=== PATIENT | female | born 1955 | race Two or more races ===

== ENCOUNTER 2016-10-11 13:40 | Outpatient (CLI) | payer OTHER ==
--- NOTE | 2016-10-18 13:44 | Mammography Report ---
DIGITAL SCREENING MAMMOGRAM: 10/11/2016 CLINICAL INDICATION: A 61-year-old for screening. COMPARISON: 05/2014 TECHNIQUE: Routine CC and MLO projections were obtained of the breasts as well as bilateral laterall y exaggerated craniocaudal views. FINDINGS: Parenchymal tissue within both breasts is extremely dense, which lowers the sensitivity of mammography; however, there are no dominant masses, suspicious microcalcifications, or secondary sig ns of malignancy. In comparison to the previous studies, there are no significant changes. IMPRESSION: No mammographic evidence of malignancy. PLAN: Screening mammography is recommended annually. BI-RADS category 1 - negative. STANDARD QUALIFYING STATEMENTS 1. This examination was reviewed with the aid of Computed-Aided Detection (CAD). 2. A negative or benign imaging report should not delay biopsy if clinically suspicious findings are present. Consider surgical consultation if warranted. More than 5% of cancers are not identified by i maging. 3. Dense breasts may obscure an underlying neoplasm. JOB #: [id number] EXT JOB #:[id number]
== END 2016-10-11 13:41 | disposition home or self-care (01) ==
LOC: DI.N 13:40
PROVIDERS: ATTEND Nurse Practitioner Gerontology
DX: Z12.31 Encounter for screening mammogram for malignant neoplasm of breast (principal)
CPT/HCPCS: 77067

== ENCOUNTER 2017-04-11 10:40 | Outpatient (CLI) | payer OTHER ==
[2017-04-11 12:44] LABS: BASOPHILS % (AUTO) 0.5 %; EOSINOPHILS # (AUTO) 0.1 10^3/uL (0.0-0.7); EOSINOPHILS % (AUTO) 0.9 %; HGB - HEMOGLOBIN 13.4 g/dL (12.0-16.0); LYMPHOCYTES # (AUTO) 1.7 10^3/uL (1.5-3.5); LYMPHOCYTES % (AUTO) 28.3 %; MEAN CORPUSCULAR HEMOGLOBIN 31.2 pg (27.0-31.0); MEAN CORPUSCULAR HGB CONC 33.9 g/dL (32.0-36.0); MEAN CORPUSCULAR VOLUME 92.2 fL (81.0-99.0); MEAN PLATELET VOLUME 9.4 fL (7.9-10.8); MONOCYTES # (AUTO) 0.5 10^3/uL (0.0-1.0); NEUTROPHILS # (AUTO) 3.7 10^3/uL (1.5-6.6); NEUTROPHILS % (AUTO) 62.3 %; PLT - PLATELET COUNT 217 10^3/uL (130-450); RED BLOOD COUNT 4.27 10^6/uL (4.20-5.40); RED CELL DISTRIBUTION WIDTH 14.2 % (12.0-15.0)
[2017-04-11 12:58] LABS: CHOL/HDL RATIO 3.1 (<4.4); CHOLESTEROL 251 mg/dL; GLUCOSE 114 mg/dL (70-100); HDL CHOLESTEROL 81 mg/dL; LDL CHOLESTEROL,CALCULATED 130 mg/dL; LDL/HDL RATIO 1.6 (<4.4); VLDL CHOLESTEROL 40 mg/dL
== END 2017-04-11 10:41 | disposition home or self-care (01) ==
LOC: LAB.N 10:40
PROVIDERS: ATTEND Registered Nurse
DX: Z01.419 Encounter for gynecological examination (general) (routine) without abnormal findings (principal)
CPT/HCPCS: 36415; 80061; 82947; 83721; 84443; 85025

== ENCOUNTER 2017-04-29 08:34 | Outpatient (CLI) | payer OTHER ==
[2017-04-29 13:22] LABS: CHOL/HDL RATIO 3.1 (<4.4); CHOLESTEROL 232 mg/dL; HDL CHOLESTEROL 75 mg/dL; LDL CHOLESTEROL,CALCULATED 139 mg/dL; LDL/HDL RATIO 1.9 (<4.4); VLDL CHOLESTEROL 18 mg/dL
== END 2017-04-29 08:35 | disposition home or self-care (01) ==
LOC: LAB.N 08:34
PROVIDERS: ATTEND Registered Nurse
DX: Z01.419 Encounter for gynecological examination (general) (routine) without abnormal findings (principal)
CPT/HCPCS: 36415; 80061; 82950; 83721

== ENCOUNTER 2017-05-02 08:34 | Outpatient (CLI) | payer OTHER | END 2017-05-02 08:35 | disposition home or self-care (01) | LOC: LAB.N 08:34 | PROVIDERS: ATTEND Registered Nurse | DX: Z01.419 Encounter for gynecological examination (general) (routine) without abnormal findings (principal) | CPT/HCPCS: 36415; 82950 ==

== ENCOUNTER 2018-04-15 08:00 | Outpatient (CLI) | payer OTHER | END 2018-04-15 23:59 | disposition home or self-care (01) | LOC: LAB.R 08:00 | PROVIDERS: ATTEND Nurse Practitioner Gerontology | DX: Z12.11 Encounter for screening for malignant neoplasm of colon (principal) | CPT/HCPCS: 82274 ==

== ENCOUNTER 2018-07-24 08:00 | Outpatient (CLI) | payer OTHER ==
[2018-07-24 14:01] LABS: BASOPHILS % (AUTO) 0.8 %; EOSINOPHILS # (AUTO) 0.1 10^3/uL (0.0-0.7); EOSINOPHILS % (AUTO) 1.6 %; HGB - HEMOGLOBIN 13.2 g/dL (12.0-16.0); LYMPHOCYTES # (AUTO) 1.7 10^3/uL (1.5-3.5); LYMPHOCYTES % (AUTO) 32.6 %; MEAN CORPUSCULAR HGB CONC 33.2 g/dL (32.0-36.0); MEAN CORPUSCULAR VOLUME 93.4 fL (81.0-99.0); MEAN PLATELET VOLUME 10.1 fL (7.9-10.8); MONOCYTES # (AUTO) 0.5 10^3/uL (0.0-1.0); MONOCYTES % (AUTO) 9.4 %; NEUTROPHILS # (AUTO) 2.9 10^3/uL (1.5-6.6); NEUTROPHILS % (AUTO) 55.6 %; PLT - PLATELET COUNT 194 10^3/uL (130-450); RED BLOOD COUNT 4.24 10^6/uL (4.20-5.40); RED CELL DISTRIBUTION WIDTH 13.8 % (12.0-15.0); WHITE BLOOD COUNT 5.2 x10^3/uL (4.8-10.8)
[2018-07-24 14:30] LABS: ALBUMIN 4.1 g/dL (3.2-5.5); ALBUMIN/GLOBULIN RATIO 1.3 (1.0-2.2); BILIRUBIN,TOTAL 0.8 mg/dL (0.2-1.0); CALCIUM 9.7 mg/dL (8.5-10.3); CREATININE 0.9 mg/dL (0.4-1.0); TOTAL PROTEIN 7.2 g/dL (6.7-8.2)
== END 2018-07-24 23:59 | disposition home or self-care (01) ==
LOC: LAB.WCP 08:00
PROVIDERS: ATTEND Family Medicine
DX: K59.00 Constipation, unspecified (principal)
CPT/HCPCS: 36415; 80053; 83540; 84443; 84466; 85025

== ENCOUNTER 2018-09-29 08:36 | Day surgery (SDC) | payer OTHER ==
[2018-09-29] MEDS ORDERED: LACTATED RINGERS 1,000 ML IV ONE ×2 (09:03→13:09)
[2018-09-29] MEDS ORDERED: MIDAZOLAM 2 MG/2 ML VIAL IVP ONE (11:19)
[2018-09-29] MEDS ORDERED: fentaNYL 250 MCG/5 ML VIAL IVP ONE (11:19)
[2018-09-29] MEDS ORDERED: ONDANSETRON 4 MG/2 ML VIAL ONE (13:13)
[2018-09-29 14:03] VITALS: BP 121/70
== END 2018-09-29 08:37 | disposition home or self-care (01) ==
LOC: SDS 08:36
PROVIDERS: ATTEND Internal Medicine Gastroenterology
PROC: 3E0H8GC Introduction of Other Therapeutic Substance into Lower GI, Via Natural or Artificial Opening Endoscopic (ICD-10-PCS; 2018-09-29)
PROC: 0DBK8ZX Excision of Ascending Colon, Via Natural or Artificial Opening Endoscopic, Diagnostic (ICD-10-PCS; principal; 2018-09-29 10:00)
DX: R19.4 Change in bowel habit (principal); D49.0 Neoplasm of unspecified behavior of digestive system; B00.89 Other herpesviral infection
CPT/HCPCS: 45380; 45381; J3010; J7120

== ENCOUNTER 2018-10-09 12:10 | Outpatient (CLI) | payer OTHER ==
[2018-10-09] MEDS ORDERED: IOVERSOL 320 100 ML VIAL IVP ONE ×2 (12:54→14:15)
[2018-10-09] MEDS ORDERED: IOVERSOL 320 50 ML VIAL ONE (12:54)
[2018-10-09 13:48] LABS: BASOPHILS % (AUTO) 0.7 %; EOSINOPHILS % (AUTO) 0.7 %; HGB - HEMOGLOBIN 13.1 g/dL (12.0-16.0); LYMPHOCYTES % (AUTO) 36.5 %; MEAN CORPUSCULAR HEMOGLOBIN 31.2 pg (27.0-31.0); MEAN CORPUSCULAR HGB CONC 32.5 g/dL (32.0-36.0); MEAN PLATELET VOLUME 11.3 fL (7.9-10.8); MONOCYTES # (AUTO) 0.6 10^3/uL (0.0-1.0); MONOCYTES % (AUTO) 10.4 %; NEUTROPHILS # (AUTO) 2.8 10^3/uL (1.5-6.6); NEUTROPHILS % (AUTO) 51.5 %; PLT - PLATELET COUNT 269 10^3/uL (130-450); RED CELL DISTRIBUTION WIDTH 13.8 % (12.0-15.0); WHITE BLOOD COUNT 5.4 x10^3/uL (4.8-10.8)
[2018-10-09 13:53] LABS: ALBUMIN 4.2 g/dL (3.2-5.5); ALBUMIN/GLOBULIN RATIO 1.4 (1.0-2.2); BILIRUBIN,TOTAL 0.6 mg/dL (0.2-1.0); CALCIUM 9.6 mg/dL (8.5-10.3); CREATININE 0.8 mg/dL (0.4-1.0); TOTAL PROTEIN 7.2 g/dL (6.7-8.2)
[2018-10-09] MEDS ORDERED: IOVERSOL 320 50 ML VIAL PO ONE (14:15)
--- NOTE | 2018-10-13 02:28 | CT Report ---
Reason: ADENOCARCINOMA, ASCENDING COLON Procedure Date: 10/09/2018 Accession Number: [id number] / [id number] Procedure: CT - Abdomen/Pelvis W CPT Code: FULL RESULT: EXAM: CT ABDOMEN AND PELVIS EXAM DATE: 10/09/2018 02:09 PM. CLINICAL HISTORY: ADENOCARCINOMA, ASCENDING COLON. COMPARISONS: None. TECHNIQUE: Routine helical CT imaging was performed through the abdomen and pelvis. IV contrast: OPTI 320 80ML. Enteric contrast: Yes. Reconstructions: Coronal and sagittal. In accordance with CT protocol optimization, one or more of the following dose reduction techniques were utilized for this exam: automated exposure control, adjustment of mA and/or KV based on patient size, or use of iterative reconstructive technique. FINDINGS: Lung Bases: Unremarkable. Liver: Normal. No masses. Gallbladder/Bile Ducts: Contracted gallbladder. No gallstones or biliary dilation. Spleen: Normal. Pancreas: Normal. Adrenal Glands: Normal. Kidneys: Subcentimeter hypodensity in left lower pole is too small to characterize although probably punctate cyst. Kidneys otherwise unremarkable. Mild fullness of bilateral renal collecting systems without significant hydronephrosis. Peritoneal Cavity/Bowel: Subtle focal wall thickening/irregularity along ascending colon suspicious for short segment lesion. Colon otherwise unremarkable. No bowel obstruction. No free fluid, free air or adenopathy. The appendix is well visualized and normal. Pelvic Organs: Normal. The bladder and visualized pelvic organs are within normal limits. Vasculature: Scattered atherosclerosis. No aneurysms or other significant abnormality. Bones: Degenerative change at L5-S1. No suspicious osseous lesions. Other: None. IMPRESSION: 1. Subtle focal wall thickening/irregularity along ascending colon likely represents reported ascending colonic neoplasm. Correlate with colonoscopy/biopsy results. 2. No CT findings to suggest metastatic disease in the abdomen or pelvis. 3. Mild fullness of bilateral renal collecting systems without significant hydronephrosis or ureteral calculus. RADIA
--- NOTE | 2018-10-13 02:38 | CT Report ---
Reason: ADENOCARCINOMA, ASCENDING COLON Procedure Date: 10/09/2018 Accession Number: [id number] / [id number] Procedure: CT - CHEST W CPT Code: FULL RESULT: EXAM: CT CHEST EXAM DATE: 10/09/2018 02:09 PM. CLINICAL HISTORY: ADENOCARCINOMA, ASCENDING COLON. COMPARISONS: None. TECHNIQUE: Routine helical CT imaging was performed through the chest. IV contrast: 80 mL Optiray 320. Reconstructions: Coronal and sagittal. In accordance with CT protocol optimization, one or more of the following dose reduction techniques were utilized for this exam: automated exposure control, adjustment of mA and/or KV based on patient size, or use of iterative reconstructive technique. FINDINGS: Lungs/Pleura: Mild biapical scarring, greater on the right than left. Focal mild nodular and tree-in-bud opacities in left lower lobe. Possible punctate nodule in right lower lobe. No additional nodules, bronchial thickening, consolidation, or edema. Pulmonary vasculature is normal. No pleural effusion. No pneumothorax. Mediastinum: Normal. No adenopathy or masses. The heart and great vessels are normal. No pericardial effusion. Vasculature: Mild atherosclerosis at aortic arch. No thoracic aortic aneurysm or dissection. No pulmonary embolism. Bones: Minimal curvature of thoracic spine. No acute fractures. Possible subtle healed right lateral sixth rib fracture. No suspicious osseous lesions. Visualized Abdomen: Unremarkable as visualized. IMPRESSION: 1. No definitive CT findings to suggest metastatic disease in the chest. 2. Focal nodular opacities in left lower lobe suspicious for focal infectious or inflammatory process. Recommend short interval follow-up imaging to reassess/assess for resolution, particularly given history of neoplasm. 3. Biapical scarring. RADIA
== END 2018-10-09 12:11 | disposition home or self-care (01) ==
LOC: DI 12:10
PROVIDERS: ATTEND Internal Medicine Gastroenterology
DX: C18.2 Malignant neoplasm of ascending colon (principal); R91.8 Other nonspecific abnormal finding of lung field
CPT/HCPCS: 71260; 74177; 80053; 85025; Q9967; 36415; 82565

== ENCOUNTER 2018-10-14 08:00 | Outpatient (CLI) | payer OTHER ==
[2018-10-14 13:12] LABS: CREATININE 0.9 mg/dL (0.4-1.0)
== END 2018-10-14 23:59 | disposition home or self-care (01) ==
LOC: LAB.WCP 08:00
PROVIDERS: ATTEND Internal Medicine Gastroenterology
DX: C18.2 Malignant neoplasm of ascending colon (principal)
CPT/HCPCS: 36415; 82565

== ENCOUNTER 2018-10-15 08:00 | Outpatient (CLI) | payer OTHER | END 2018-10-15 23:59 | disposition home or self-care (01) | LOC: LAB.WCP 08:00 | PROVIDERS: ATTEND Internal Medicine Gastroenterology | DX: C18.2 Malignant neoplasm of ascending colon (principal) | CPT/HCPCS: 36415; 82378 ==

== ENCOUNTER 2018-10-19 07:54 | Inpatient (IN) | payer OTHER ==
[2018-10-19] MEDS ORDERED: ACETAMINOPHEN 1,000 MG/100 ML 100 ML IV ONE ×2 (08:10→10:04)
[2018-10-19] MEDS ORDERED: CELECOXIB 100 MG CAPSULE PO ONE (08:12)
[2018-10-19] MEDS ORDERED: GABAPENTIN 400 MG CAPSULE ONE (08:12)
[2018-10-19] MEDS ORDERED: CEFAZOLIN SODIUM IN 0.9 % NACL 2 GM/100 ML BAG IV ONE (08:12)
[2018-10-19] MEDS ORDERED: metroNIDAZOLE 500 MG/100 ML 500 MG/100 ML BAG ONE (08:12)
[2018-10-19] MEDS ORDERED: LACTATED RINGERS 1,000 ML IV ONE ×3 (08:17→12:38)
--- NOTE | 2018-10-19 09:13 | ANESTHESIA ---
Pre-Anesthesia VS, & Labs - Diagnosis Colon CA - Procedure Lap hand assisted R colectomy w/gelport Vital Signs: Temp Pulse Resp BP Pulse Ox 36.9 C 75 16 129/98 H 100 10/19/18 08:17 10/19/18 08:17 10/19/18 08:17 10/19/18 08:17 10/19/18 08:17 Height 5 ft 4 in Weight (kg) 45.5 kg - NPO >8 hours - Is Patient ?: No - Lab Results Lab results reviewed: Yes Home Medications and Allergies Home Medications: Ambulatory Orders No Known Home Medications 10/09/18 No Known Home Medications 10/09/18 Allergies/Adverse Reactions: Allergies Allergy/AdvReac Type Severity Reaction Status Date / Time Sulfa (Sulfonamide AdvReac Nausea, Verified 09/29/18 09:01 Antibiotics) diarrhea Anes History & Medical History - Anesthetic History Anesthesia Complications: reports: No previous complications Family history of Anesthesia Complications: Denies Family history of Malignant Hyperthermia: Denies - Medical History Cardiovascular: reports: None Pulmonary: reports: None Gastrointestinal: reports: None Urinary: reports: None Musculoskeletal: reports: None Endocrine/Autoimmune: reports: None, Other (colon CA) Skin: reports: None - Surgical History General: Colonoscopy Exam General: Alert, Oriented x3, Cooperative Dental: Partials Upper, Partials Lower Mouth Openin Fingerbreadth Neck Mobility: Normal Mallampati classification: II Thyromental Distance: 4-6 cm Respiratory: Lungs clear, Normal breath sounds, No respiratory distress Cardiovascular: Regular rate Neurological: Normal speech Mental/Cognitive Status: Alert/Oriented X3, Normal for patient Cognitive Status: Within normal limits Plan Anesthesia Type: General, Transverse Abdominis Plane (TAP) Block (bilat) Consent for Procedure(s) Verified and Reviewed: Yes Code Status: Attempt Resuscitation ASA classification: 3-Severe systemic disease Is this case an emergency?: No
[2018-10-19] MEDS ORDERED: PROPOFOL 200 MG/20 ML VIAL IVP ONE (10:04)
[2018-10-19] MEDS ORDERED: KETOROLAC 30 MG/ML VIAL IVP ONE (10:04)
[2018-10-19] MEDS ORDERED: MIDAZOLAM 2 MG/2 ML VIAL IVP ONE (10:04)
[2018-10-19] MEDS ORDERED: LIDOCAINE-MPF 2% 5 ML VIAL IM ONE (10:04)
[2018-10-19] MEDS ORDERED: fentaNYL 250 MCG/5 ML VIAL IVP ONE (10:04)
[2018-10-19] MEDS ORDERED: DEXAMETHASONE 4 MG/ML VIAL IVP ONE (10:04)
[2018-10-19] MEDS ORDERED: GLYCOPYRROLATE 1 MG/5 ML VIAL IVP ONE (10:04)
[2018-10-19] MEDS ORDERED: ROCURONIUM 50 MG/5 ML VIAL IVP ONE (10:04)
[2018-10-19] MEDS ORDERED: ONDANSETRON 4 MG/2 ML VIAL IVP ONE (10:04)
[2018-10-19] MEDS: BUPIVACAINE 0.5%-EPI 1:200000 PF 10 ML VIAL ONE ×2 (10:54→11:56)
[2018-10-19] MEDS ORDERED: oxyCODONE 5 MG TABLET PO PRN (12:13)
[2018-10-19] MEDS ORDERED: ONDANSETRON 4 MG/2 ML VIAL IVP PRN (12:13)
--- NOTE | 2018-10-19 12:27 | OPERATIVE REPORT ---
Operative Report - General Admit Date: 10/19/18 Procedure Date: 10/19/18 Planned Procedure: Hand Assisted Laparoscopic Right Colectomy Pre-Op Diagnosis: Ascending colon cancer Procedure Performed: Hand Assisted Laparoscopic Right Colectomy Post Op Diagnosis: Same - Procedure Note Primary Surgeon: Eze Smith MD [facility] Anesthesia Provider: Maik Hernandez CRNA Anesthesia Technique: General ET tube, Regional block (TAP blocks) Pathology: right colon IV Fluids (mL): 1,400 Estimated Blood Loss (mL): 20 Urine Output (mL): 250 Indications: recent colonoscopy showing an ascending colon tumor bx highly suspicious for invasive adenocarcinoma. Findings: no gross evidence of invasion through the wall of the colon, lymphadenopathy, or liver metastases. Complications: none
[2018-10-19] MEDS: ACETAMINOPHEN 1,000 MG/100 ML 100 ML IV SCH ×2 (14:11→20:02)
[2018-10-19] MEDS: LACTATED RINGERS 1,000 ML IV SCH (14:12)
[2018-10-19] MEDS: KETOROLAC 15 MG/ML VIAL IVP SCH (17:13)
[2018-10-19] MEDS: SODIUM CHLORIDE FLUSH 0.9% 10 ML SYRINGE IVP PRN ×2 (17:13→20:57)
[2018-10-19] MEDS: SODIUM CHLORIDE FLUSH 0.9% 10 ML SYRINGE IVP SCH (17:13)
--- NOTE | 2018-10-19 19:01 | PROCEDURE REPORT ---
DATE OF SERVICE: 10/19/2018 Physician: Eze Smith MD PREOPERATIVE DIAGNOSIS: Ascending colon cancer. POSTOPERATIVE DIAGNOSIS: Ascending colon cancer. PROCEDURE PERFORMED: Hand-assisted laparoscopic right colectomy. ANESTHESIA: General endotracheal plus regional block by Maik Hernandez CRNA and DIMITRIOS Pratt. SURGEON: Eze Smith MD. ESTIMATED BLOOD LOSS: 20 mL. COMPLICATIONS: None. DRAINS: None. FINDINGS: Laparoscopy revealed no gross evidence of transmural invasion of the tumor in the distal a scending colon. There was no evidence of mesenteric lymphadenopathy, liver metastasis, ascites, crow toneal or omental implants. The visualized portions of the liver, stomach, gallbladder, and remainde r of small and large bowel appeared within normal limits. INDICATIONS: Patient is a 63-year-old woman who recently underwent a colonoscopy to evaluate change in bowel habits with the findings of an ulcerated partially circumferential tumor in the mid ascendin g colon, biopsies of which showed severe dysplasia concerning for invasive adenocarcinoma. Metastati c workup including CT of chest, abdomen and pelvis were negative. CEA was normal. She was advised t o undergo a hand-assisted laparoscopic right colectomy for definitive surgical treatment. TECHNIQUE: After informed consent and preop ERAS protocol institution, including mechanical and anti biotic bowel preparation, carbohydrate loading, and preoperative education consultation, patient was taken to the operating room where she was placed under general endotracheal anesthesia. TAP blocks w ere performed by Louis Mazariegos CRNA. Orogastric and Pardo catheters were inserted. Her abdomen was prepared with ChloraPrep solution and draped in the usual sterile fashion. Preoperative preparation also included administration of 2 grams cefazolin and 500 mg of metronidazole intravenously within a n hour of the incision. A vertical periumbilical incision approximately 6 cm in length was made, carried down through the lay ers of abdominal wall until the peritoneum was identified and entered sharply. Hemostasis achieved w ith electrocautery. A GelPort was inserted. Pneumoperitoneum was achieved with carbon dioxide. Two additional 5 mm ports were placed in the subxiphoid midline and left upper quadrant. A 5-mm 30-degr ee sevenload telescope was inserted. Using the hand-assisted technique with a GelPort placed in the mi dline incision and the LigaSure, the right colon was exposed and mobilized. Symone ink tattooing was noted in the region of the hepatic flexure. The right colon was mobilized to the level of the midline with care being taken to avoid injury to th e underlying organs such as kidney, gallbladder, duodenum, pancreas and ureter. After sufficient mob ilization had been performed, pneumoperitoneum was allowed to escape. The GelPort was removed and th e right colon was exteriorized where an extracorporeal resection anastomosis was then performed. Poi nts of bowel division were chosen in the right transverse colon several centimeters distal to the [place] ink tattoo site and proximally in the terminal ileum a couple of centimeters from the ileocecal va lve. The bowel was mobilized and divided with the JOSE-75 mm stapler at both sites. The mesentery wa s resected at its base using the LigaSure device and 0 Vicryl ties for hemostasis and for ligation of the ileocolic vessels. The right colon was then sent to pathology. Next, a [id number] functional end-to-end anastomosis was then constructed between the terminal ileum and the transverse colon, latisha ing up the divided ends of the two organs, securing them in place along the antimesenteric border wit h interrupted 3-0 silk sutures, making openings in the terminal ileum and the right colon near the di vided end and using the JOSE-[address] one arm in each organ, closing and firing the stap ler, creating a common channel. After hemostasis was assured, another firing of the JOSE stapler was used to resect the two prior staple lines and the common defect. After hemostasis was assured, patency assured, and viability assured, the anastomosis was returned to the abdominal cavity. Instruments and gloves were changed. Closing tray was used. Pneumoperitoneu m was reestablished. Hemostasis was assured. The abdominal cavity was copiously irrigated with sali ne solution, following which instruments and cannulas were removed under direct vision. Pneumoperito neum was allowed to escape. The midline fascia was closed with continuous 0 PDS suture for the midli ne fascia, followed by 3-0 Vicryl for the subcutaneous tissues and 4-0 Monocryl for the skin, followe d by Dermabond. Also 4-0 Monocryl and Dermabond were used for the two 5 mm port sites as well. Then , 30 mL of 0.25% Marcaine with epinephrine was infiltrated into the incisions to assist in postoperat abdoulaye analgesia. Anesthesia was terminated. The patient was transferred to the recovery room in satis factory condition. Sponge and needle counts were correct x2 and no drains were used. cc: CAMILA Avelar TD: 10/19/2018 12:39
[2018-10-19] MEDS: ENOXAPARIN 30 MG/0.3 ML SYRINGE SUBQ SCH (20:56)
[2018-10-19] MEDS: FAMOTIDINE 20 MG TABLET PO SCH (20:57)
[2018-10-20] MEDS: KETOROLAC 15 MG/ML VIAL IVP SCH ×5 (00:09→23:42)
[2018-10-20] MEDS: SODIUM CHLORIDE FLUSH 0.9% 10 ML SYRINGE IVP SCH ×4 (01:08→23:42)
[2018-10-20] MEDS: ACETAMINOPHEN 1,000 MG/100 ML 100 ML IV SCH ×2 (01:58→08:41)
[2018-10-20] MEDS: LACTATED RINGERS 1,000 ML IV SCH (01:59)
[2018-10-20 05:15] LABS: BASOPHILS % (AUTO) 0.1 %; HGB - HEMOGLOBIN 12.4 g/dL (12.0-16.0); LYMPHOCYTES # (AUTO) 1.1 10^3/uL (1.5-3.5); LYMPHOCYTES % (AUTO) 9.8 %; MEAN CORPUSCULAR HEMOGLOBIN 31.4 pg (27.0-31.0); MEAN CORPUSCULAR HGB CONC 33.7 g/dL (32.0-36.0); MEAN CORPUSCULAR VOLUME 93.2 fL (81.0-99.0); MEAN PLATELET VOLUME 10.5 fL (7.9-10.8); MONOCYTES # (AUTO) 1.1 10^3/uL (0.0-1.0); MONOCYTES % (AUTO) 9.4 %; NEUTROPHILS # (AUTO) 9.3 10^3/uL (1.5-6.6); NEUTROPHILS % (AUTO) 80.2 %; PLT - PLATELET COUNT 232 10^3/uL (130-450); RED BLOOD COUNT 3.95 10^6/uL (4.20-5.40); RED CELL DISTRIBUTION WIDTH 13.3 % (12.0-15.0); WHITE BLOOD COUNT 11.6 x10^3/uL (4.8-10.8)
[2018-10-20 05:26] LABS: ALBUMIN 3.6 g/dL (3.2-5.5); ALBUMIN/GLOBULIN RATIO 1.3 (1.0-2.2); BILIRUBIN,TOTAL 0.6 mg/dL (0.2-1.0); CALCIUM 9.3 mg/dL (8.5-10.3); CREATININE 0.8 mg/dL (0.4-1.0); TOTAL PROTEIN 6.3 g/dL (6.7-8.2)
--- NOTE | 2018-10-20 08:09 | PROVIDER PROGRESS NOTE ---
Subjective - General Admit Date: 10/19/18 Procedure Date: 10/19/18 Post Op Days: 1 Procedure Performed: hand assisted laparoscopic right colectomy - Review of Systems Wound/Incisions: positive: Healing well, No drainage General: positive: No symptoms HEENT: positive: No symptoms Pulmonary: positive: No symptoms Cardiovascular: positive: No symptoms Gastrointestinal: positive: Nausea (mild last night; none now), Abdominal pain (minimal; well controlled with scheduled meds). negative: Vomiting, Difficulty swallowing, Flatus (or stool yet) Genitourinary: positive: No symptoms (voiding well) Musculoskeletal: positive: No symptoms Objective - Patient Data Reviewed Vital Signs: Yes Vital Signs: Vital Signs x48h Temp Pulse Resp BP Pulse Ox 10/20/18 04:17 36.9 C 58 L 18 130/65 100 Weight: Weight 10/18/18 10/19/18 10/20/18 23:59 23:59 23:59 Weight (kg) 53 kg Intake & Output: Intake and Output Totals x24h 10/18/18 10/19/18 10/20/18 23:59 23:59 23:59 Intake Total 2150 1350 Output Total 890 1275 Balance 1260 75 minimal po so far; uo good - Lab Results Lab Results: 10/20/18 04:45 10/20/18 04:45 Other Lab Results: Lab Results x24hrs 10/20/18 10/20/18 Range/Units 04:45 04:45 WBC 11.6 H (4.8-10.8) x10^3/uL RBC 3.95 L (4.20-5.40) 10^6/uL Hgb 12.4 (12.0-16.0) g/dL Hct 36.8 L (37.0-47.0) % MCV 93.2 (81.0-99.0) fL MCH 31.4 H (27.0-31.0) pg MCHC 33.7 (32.0-36.0) g/dL RDW 13.3 (12.0-15.0) % Plt Count 232 (130-450) 10^3/uL MPV 10.5 (7.9-10.8) fL Neut # (Auto) 9.3 H (1.5-6.6) 10^3/uL Lymph # (Auto) 1.1 L (1.5-3.5) 10^3/uL Charles # (Auto) 1.1 H (0.0-1.0) 10^3/uL Eos # (Auto) 0.0 (0.0-0.7) 10^3/uL Baso # (Auto) 0.0 (0.0-0.1) 10^3/uL Absolute Nucleated RBC 0.00 x10^3/uL Nucleated RBC % 0.0 /100WBC Sodium 139 (135-145) mmol/L Potassium 4.2 (3.5-5.0) mmol/L Chloride 102 (101-111) mmol/L Carbon Dioxide 27 (21-32) mmol/L Anion Gap 10.0 (6-13) BUN 12 (6-20) mg/dL Creatinine 0.8 (0.4-1.0) mg/dL Estimated GFR (MDRD) 72 L (>89) Glucose 114 H (70-100) mg/dL Calcium 9.3 (8.5-10.3) mg/dL Total Bilirubin 0.6 (0.2-1.0) mg/dL AST 19 (10-42) IU/L ALT 18 (10-60) IU/L Alkaline Phosphatase 39 L (42-121) IU/L Total Protein 6.3 L (6.7-8.2) g/dL Albumin 3.6 (3.2-5.5) g/dL Globulin 2.7 (2.1-4.2) g/dL Albumin/Globulin Ratio 1.3 (1.0-2.2) - Current Medications Current Medications: Current Medications Generic Name Dose Route Start Last Admin Trade Name Wilfredq PRN Reason Stop Dose Admin Enoxaparin Sodium 30 mg 10/19/18 20:00 10/19/18 20:56 Lovenox SUBQ 30 mg DAILY VIDHI Administration Famotidine 20 mg 10/19/18 21:00 10/19/18 20:57 Pepcid PO 20 mg DAILY VIDHI Administration Lactated Ringer's 1,000 mls @ 50 mls/hr 10/19/18 13:00 10/20/18 01:59 Lr IV 50 mls/hr .Q20H VIDHI Administration Acetaminophen 100 mls @ 400 mls/hr 10/19/18 13:00 10/20/18 02:18 Ofirmev IV Infused Q6H VIDHI Infusion Ketorolac Tromethamine 15 mg 10/19/18 18:00 10/20/18 05:46 Toradol Inj (15mg) IVP 10/24/18 17:59 15 mg Q6H VIDHI Administration Ondansetron HCl 4 mg 10/19/18 12:13 10/19/18 20:56 Zofran Inj IVP 4 mg Q6H PRN Administration Nausea / Vomiting Sodium Chloride 10 ml 10/19/18 17:00 10/20/18 01:08 Normal Saline Flush 0.9% IVP Not Given 0100,0900,1700 VIDHI Sodium Chloride 10 ml 10/19/18 12:13 10/19/18 20:57 Normal Saline Flush 0.9% IVP 10 ml PRN PRN Administration NEEDED PER PROVIDER ORDERS - Physical Exam Wound/Incisions: positive: Healing well General Appearance: positive: No acute distress, Alert Eyes Bilateral: positive: Normal inspection ENT: positive: ENT inspection nml, Pharynx nml, No signs of dehydration Neck: positive: No JVD Respiratory: positive: Chest non-tender, No respiratory distress, Breath sounds nml Cardiovascular: positive: Regular rate & rhythm, No murmur, No gallop Abdomen: positive: Nml bowel sounds, Tenderness (minimal expected crow incisional tenderness; incisions healing well) Skin: positive: Color nml, No rash, Warm, Dry. negative: Cyanosis Extremities: positive: Non-tender, No pedal edema. negative: Calf tenderness Neurologic/Psychiatric: positive: Oriented x3 ABX Reporting Has patient been on IV antibiotics over the past 48 hours?: No Impression/Plan - Problem List Problem List: PO Day 1 s/p lap assisted right colectomy; doing well; plan: continue ERAS protocol: advance diet and activity as evelio.
[2018-10-20] MEDS: ENOXAPARIN 30 MG/0.3 ML SYRINGE SUBQ SCH (08:44)
[2018-10-20] MEDS: FAMOTIDINE 20 MG TABLET PO SCH (08:44)
[2018-10-20] MEDS: SODIUM CHLORIDE FLUSH 0.9% 10 ML SYRINGE IVP PRN ×2 (13:11→17:49)
[2018-10-20] MEDS: ACETAMINOPHEN 325 MG TABLET PO SCH ×2 (14:52→20:41)
[2018-10-21] MEDS: ACETAMINOPHEN 325 MG TABLET PO SCH ×2 (02:02→08:38)
[2018-10-21] MEDS: KETOROLAC 15 MG/ML VIAL IVP SCH (05:41)
[2018-10-21] MEDS: SODIUM CHLORIDE FLUSH 0.9% 10 ML SYRINGE IVP PRN (05:42)
[2018-10-21 05:44] LABS: BASOPHILS % (AUTO) 0.3 %; EOSINOPHILS % (AUTO) 0.7 %; HGB - HEMOGLOBIN 11.4 g/dL (12.0-16.0); LYMPHOCYTES # (AUTO) 1.5 10^3/uL (1.5-3.5); LYMPHOCYTES % (AUTO) 25.1 %; MEAN CORPUSCULAR HEMOGLOBIN 31.6 pg (27.0-31.0); MEAN CORPUSCULAR VOLUME 95.6 fL (81.0-99.0); MEAN PLATELET VOLUME 10.7 fL (7.9-10.8); MONOCYTES # (AUTO) 0.5 10^3/uL (0.0-1.0); MONOCYTES % (AUTO) 7.8 %; NEUTROPHILS % (AUTO) 65.9 %; PLT - PLATELET COUNT 205 10^3/uL (130-450); RED BLOOD COUNT 3.61 10^6/uL (4.20-5.40); RED CELL DISTRIBUTION WIDTH 13.5 % (12.0-15.0)
[2018-10-21 05:58] LABS: ALBUMIN 3.5 g/dL (3.2-5.5); ALBUMIN/GLOBULIN RATIO 1.4 (1.0-2.2); BILIRUBIN,TOTAL 0.9 mg/dL (0.2-1.0); CALCIUM 8.7 mg/dL (8.5-10.3); CREATININE 0.8 mg/dL (0.4-1.0)
--- NOTE | 2018-10-21 08:15 | PROVIDER PROGRESS NOTE ---
Subjective - General Admit Date: 10/19/18 Procedure Date: 10/19/18 Post Op Days: 2 Procedure Performed: hand assisted laparoscopic right colectomy - Review of Systems Wound/Incisions: positive: Healing well General: positive: No symptoms HEENT: positive: No symptoms Pulmonary: positive: No symptoms Cardiovascular: positive: No symptoms Gastrointestinal: positive: Abdominal pain (minimal; well controlled with non narcotic oral meds), Flatus (and liquid stools x 2). negative: Vomiting, Difficulty swallowing Genitourinary: positive: No symptoms (voiding well) Musculoskeletal: positive: No symptoms Psychiatric: positive: No symptoms Objective - Patient Data Reviewed Vital Signs: Yes Weight: Weight 10/19/18 10/20/18 10/21/18 23:59 23:59 23:59 Weight (kg) 53 kg Intake & Output: Intake and Output Totals x24h 10/19/18 10/20/18 10/21/18 23:59 23:59 23:59 Intake Total 2150 3400.833 Output Total 890 2375 700 Balance 1260 1025.833 -700 tolerating full liquid diet well and voiding adequate amounts of urine. - Lab Results Lab Results: 10/21/18 05:18 10/21/18 05:18 Other Lab Results: Lab Results x24hrs 10/21/18 10/21/18 Range/Units 05:18 05:18 WBC 6.0 (4.8-10.8) x10^3/uL RBC 3.61 L (4.20-5.40) 10^6/uL Hgb 11.4 L (12.0-16.0) g/dL Hct 34.5 L (37.0-47.0) % MCV 95.6 (81.0-99.0) fL MCH 31.6 H (27.0-31.0) pg MCHC 33.0 (32.0-36.0) g/dL RDW 13.5 (12.0-15.0) % Plt Count 205 (130-450) 10^3/uL MPV 10.7 (7.9-10.8) fL Neut # (Auto) 4.0 (1.5-6.6) 10^3/uL Lymph # (Auto) 1.5 (1.5-3.5) 10^3/uL Gilmer # (Auto) 0.5 (0.0-1.0) 10^3/uL Eos # (Auto) 0.0 (0.0-0.7) 10^3/uL Baso # (Auto) 0.0 (0.0-0.1) 10^3/uL Absolute Nucleated RBC 0.00 x10^3/uL Nucleated RBC % 0.0 /100WBC Sodium 139 (135-145) mmol/L Potassium 3.8 (3.5-5.0) mmol/L Chloride 102 (101-111) mmol/L Carbon Dioxide 30 (21-32) mmol/L Anion Gap 7.0 (6-13) BUN 15 (6-20) mg/dL Creatinine 0.8 (0.4-1.0) mg/dL Estimated GFR (MDRD) 72 L (>89) Glucose 91 (70-100) mg/dL Calcium 8.7 (8.5-10.3) mg/dL Total Bilirubin 0.9 (0.2-1.0) mg/dL AST 20 (10-42) IU/L ALT 16 (10-60) IU/L Alkaline Phosphatase 35 L (42-121) IU/L Total Protein 6.0 L (6.7-8.2) g/dL Albumin 3.5 (3.2-5.5) g/dL Globulin 2.5 (2.1-4.2) g/dL Albumin/Globulin Ratio 1.4 (1.0-2.2) - Current Medications Current Medications: Current Medications Generic Name Dose Route Start Last Admin Trade Name aTra PRN Reason Stop Dose Admin Acetaminophen 650 mg 10/20/18 14:00 10/21/18 02:02 Tylenol PO Not Given Q6H VIDHI Enoxaparin Sodium 30 mg 10/19/18 20:00 10/20/18 08:44 Lovenox SUBQ 30 mg DAILY VIDHI Administration Famotidine 20 mg 10/19/18 21:00 10/20/18 08:44 Pepcid PO 20 mg DAILY VIDHI Administration Ketorolac Tromethamine 15 mg 10/19/18 18:00 10/21/18 05:41 Toradol Inj (15mg) IVP 10/24/18 17:59 15 mg Q6H VIDHI Administration Ondansetron HCl 4 mg 10/19/18 12:13 10/19/18 20:56 Zofran Inj IVP 4 mg Q6H PRN Administration Nausea / Vomiting Sodium Chloride 10 ml 10/19/18 17:00 10/20/18 23:42 Normal Saline Flush 0.9% IVP 10 ml 0100,0900,1700 VIDHI Administration Sodium Chloride 10 ml 10/19/18 12:13 10/21/18 05:42 Normal Saline Flush 0.9% IVP 10 ml PRN PRN Administration NEEDED PER PROVIDER ORDERS - Physical Exam Wound/Incisions: positive: Healing well, No drainage General Appearance: positive: No acute distress, Alert, Other (ambulating in halls without difficulty) Eyes Bilateral: positive: No scleral icterus ENT: positive: ENT inspection nml, Pharynx nml, No signs of dehydration Neck: positive: Nml inspection, No JVD Respiratory: positive: Chest non-tender, No respiratory distress, Breath sounds nml. negative: Wheezes, Rales, Rhonchi Cardiovascular: positive: Regular rate & rhythm, No murmur, No gallop Abdomen: positive: Nml bowel sounds, No distention, Tenderness (minmal incis ional tenderness; incisions) Skin: positive: Color nml, No rash, Warm, Dry. negative: Cyanosis Extremities: positive: Non-tender, No pedal edema. negative: Calf tenderness Neurologic/Psychiatric: positive: Oriented x3 ABX Reporting Has patient been on IV antibiotics over the past 48 hours?: No Impression/Plan - Problem List Problem List: PO Day #2 s/p lap right colectomy for ascending colon cancer, doing well. Plan: home today, usual precations, non narcotic analgesics only; f/u my office in 1-2 weeks; diet as tolerated except no raw vegetables or nuts for 2 weeks. Path is pending as of now and will be reviewed with pt at her f/u visit.
--- NOTE | 2018-10-21 08:25 | Discharge Plan ---
Discharge Plan Problem Reviewed?: Yes Disposition: Home, Self Care Condition: Good Diet: Regular (avoid raw vegetables and nuts for 2 weeks) Activity Restrictions: no lifting more than 10 lbs; no sports x 2 weeks Shower Restrictions: No Driving Restrictions: Yes (as tolerated) Weight Bearing: Full Weight Additional Instructions or Follow Up instructions: Follow up with Dr. Smith in 1-2 weeks; ambulate daily. Use actaminophen 650 mg every 6 hours as needed and/or ibuprofen 400 mg every 6 hours as needed for pain. No Smoking: If you smoke, Please STOP! Call for help. Follow-up with: Law Bailey MD [Primary Care Provider] -
--- NOTE | 2018-10-21 08:29 | DISCHARGE SUMMARY ---
"Discharge Summary Admit Date: 10/19/18 Discharge Date: 10/21/18 Discharging Provider: Dr. Eze Smith Primary Care Provider: Dr. Law Bailey Code Status: Attempt Resuscitation Condition at Discharge: Good Discharge Disposition: 01 Home, Self Care Discharge Facility Name: [facility] - DIAGNOSES Admission Diagnoses: adenocarcinoma of the ascending colon Discharge Diagnoses with Status of Each Condition: adenocarcinoma of the ascending colon; Laparoscopic right colectomy on 10/19/18. Uneventful postoperative course. - HPI History of Present Illness: See Dr. Smith's H & P. - CONSULTS | PROCEDURES Consultations: none Procedures: 10/19/18: hand assisted laparoscopic right colectomy - HOSPITAL COURSE Hospital Course: Uneventful. Pt followed standard [facility] protocols and by the 2nd postop day pt was tolerating a low residue diet well, ambulating, voiding, moving her bowels well, with stable vital signs and her postop pain well controlled with non narcotic analgesics. Pathology is pending at time of discharge. - ALLERGIES Allergies/Adverse Reactions: Allergies Allergy/AdvReac Type Severity Reaction Status Date / Time Sulfa (Sulfonamide AdvReac Nausea, Verified 09/29/18 09:01 Antibiotics) diarrhea - MEDICATIONS Home Medications: Ambulatory Orders Medication Instructions Recorded Confirmed No Known Home Medications 10/09/18 10/09/18 Home Medications Other | Comments: pt will use acetaminophen 650 mg every 6 hours and ibuprofen 400 mg every 6 hours as needed for pain. - PHYSICAL EXAM AT DISCHARGE General Appearance: positive: No acute distress, Alert Eyes Bilateral: positive: Normal inspection, No scleral icterus ENT: positive: ENT inspection nml, Pharynx nml, No signs of dehydration Neck: positive: Nml inspection Respiratory: positive: Chest non-tender, No respiratory distress, Breath sounds nml. negative: Wheezes, Rales, Rhonchi Cardiovascular: positive: Regular rate & rhythm, No murmur, No gallop Abdomen: positive: Nml bowel sounds, Tenderness (minimal incisional; incisions healing well) Skin: positive: Color nml, No rash, Warm, Dry. negative: Cyanosis Extremities: positive: Non-tender, No pedal edema. negative: Calf tenderness Neurologic/Psychiatric: positive: Oriented x3 - LABS Result Diagrams: 10/21/18 05:18 10/21/18 05:18 - FOLLOW UP Follow Up: Dr. Smith in 1-2 weeks - TIME SPENT Time Spent in Discharge (Minutes): 30"
[2018-10-21] MEDS: ENOXAPARIN 30 MG/0.3 ML SYRINGE SUBQ SCH (08:39)
[2018-10-21] MEDS: FAMOTIDINE 20 MG TABLET PO SCH (08:39)
[2018-10-21] MEDS: SODIUM CHLORIDE FLUSH 0.9% 10 ML SYRINGE IVP SCH (08:42)
[2018-10-21 09:06] VITALS: BP 128/77
== END 2018-10-21 10:40 | disposition home or self-care (01) | DRG 330 ==
LOC: MS2 07:54
PROVIDERS: ADMIT Internal Medicine Gastroenterology; ATTEND Internal Medicine Gastroenterology
PROC: 0DTF0ZZ Resection of Right Large Intestine, Open Approach (ICD-10-PCS; principal; 2018-10-19 09:15)
DX: C18.2 Malignant neoplasm of ascending colon (principal); B00.89 Other herpesviral infection; L82.1 Other seborrheic keratosis; Z79.891 Long term (current) use of opiate analgesic
CPT/HCPCS: 36415; 80053; 85025; A9270; J0131; J0690; J1650; J3010; J7120

== ENCOUNTER 2019-04-30 14:36 | Outpatient (CLI) | payer OTHER ==
[2019-04-30 14:53] LABS: BASOPHILS % (AUTO) 0.6 %; EOSINOPHILS # (AUTO) 0.1 10^3/uL (0.0-0.7); EOSINOPHILS % (AUTO) 1.5 %; HGB - HEMOGLOBIN 12.7 g/dL (12.0-16.0); LYMPHOCYTES # (AUTO) 2.1 10^3/uL (1.5-3.5); LYMPHOCYTES % (AUTO) 33.8 %; MEAN CORPUSCULAR HEMOGLOBIN 31.4 pg (27.0-31.0); MEAN CORPUSCULAR HGB CONC 33.2 g/dL (32.0-36.0); MEAN CORPUSCULAR VOLUME 94.3 fL (81.0-99.0); MEAN PLATELET VOLUME 10.4 fL (7.9-10.8); MONOCYTES # (AUTO) 0.6 10^3/uL (0.0-1.0); MONOCYTES % (AUTO) 9.5 %; NEUTROPHILS # (AUTO) 3.4 10^3/uL (1.5-6.6); NEUTROPHILS % (AUTO) 54.4 %; PLT - PLATELET COUNT 224 10^3/uL (130-450); RED BLOOD COUNT 4.05 10^6/uL (4.20-5.40); RED CELL DISTRIBUTION WIDTH 14.3 % (12.0-15.0); WHITE BLOOD COUNT 6.2 x10^3/uL (4.8-10.8)
[2019-04-30 16:38] LABS: ALBUMIN 4.5 g/dL (3.2-5.5); ALBUMIN/GLOBULIN RATIO 1.6 (1.0-2.2); BILIRUBIN,TOTAL 0.8 mg/dL (0.2-1.0); CALCIUM 9.6 mg/dL (8.5-10.3); CREATININE 0.8 mg/dL (0.4-1.0); TOTAL PROTEIN 7.3 g/dL (6.7-8.2)
== END 2019-04-30 14:37 | disposition home or self-care (01) ==
LOC: LAB 14:36
PROVIDERS: ATTEND Surgery
DX: C18.2 Malignant neoplasm of ascending colon (principal)
CPT/HCPCS: 36415; 80053; 85025

== ENCOUNTER 2019-05-14 14:48 | Outpatient (CLI) | payer OTHER ==
--- NOTE | 2019-05-15 01:10 | XRAY Report ---
Reason: ADENOCARCINOMA Procedure Date: 05/14/2019 Accession Number: [id number] / [id number] Procedure: XR - Chest 2 View X-Ray CPT Code: 81543 Final Report FULL RESULT: EXAM: CHEST RADIOGRAPHY EXAM DATE: 05/14/2019 03:10 PM. CLINICAL HISTORY: History of colon adenocarcinoma. Surveillance. COMPARISON: CHEST W10/09/2018 2:02 PM ABDOMEN/PELVIS W10/09/2018 2:02 PM. TECHNIQUE: 2 views. FINDINGS: Lungs/Pleura: No alveolar consolidation or pleural effusion seen. No pneumothorax. Mediastinum: Heart and mediastinal contours are unremarkable. Other: None. IMPRESSION: 1. No acute abnormality seen in the chest. RADIA
== END 2019-05-14 14:49 | disposition home or self-care (01) ==
LOC: DI 14:48
PROVIDERS: ATTEND Surgery
DX: C18.2 Malignant neoplasm of ascending colon (principal)
CPT/HCPCS: 71046

== ENCOUNTER 2019-07-02 14:00 | Outpatient (CLI) | payer OTHER ==
[2019-07-02 14:29] LABS: CREATININE 0.8 mg/dL (0.4-1.0)
[2019-07-02] MEDS ORDERED: IOVERSOL 320 100 ML VIAL IVP ONE ×2 (15:00→15:25)
--- NOTE | 2019-07-03 14:01 | CT Report ---
Reason: MALIGNANT NEOPLASM OF CECUM Procedure Date: 07/02/2019 Accession Number: [id number] / [id number] Procedure: CT - CHEST W CPT Code: Final Report FULL RESULT: EXAM: CT CHEST EXAM DATE: 07/02/2019 03:21 PM. CLINICAL HISTORY: MALIGNANT NEOPLASM OF CECUM. COMPARISONS: CHEST W/ 10/09/2018 2:02 PM. TECHNIQUE: Routine helical CT imaging was performed through the chest. IV contrast: 75 cc of Optiray 320. Reconstructions: Coronal and sagittal. In accordance with CT protocol optimization, one or more of the following dose reduction techniques were utilized for this exam: automated exposure control, adjustment of mA and/or KV based on patient size, or use of iterative reconstructive technique. FINDINGS: Lungs/Pleura: Biapical parenchymal scarring and pleural thickening again seen. No endobronchial obstruction. No pneumothorax. No pleural effusions. No vascular congestion. There is focal bronchiectasis in the posterior mid left lower lobe, as before although slightly more prominent with mucous plugging and centrilobular opacities peripherally, as before. 2 mm nodule medial left lower lobe image 267, series 4, stable. No other or new nodules are identified. Punctate nodule in the right lobe previously described not well delineated on the current study. Right middle lobe and lingular scar/atelectasis. Calcified left lower lobe granuloma again seen. Mediastinum: Visualized thyroid gland unremarkable. Heart size normal. No enlarged mediastinal or hilar lymph nodes. Tiny hiatal hernia. No mediastinal fluid collections. Bones: Degenerative changes thoracic spine, thoracic scoliosis. No acute osseous abnormalities. No osseous lesions. Healed right lateral 5th, 6th, and 7th rib fractures. Visualized Abdomen: Abdominal aortic atherosclerosis, otherwise unremarkable upper abdomen. Other: None. IMPRESSION: 1. Focal bronchiectasis and centrilobular airspace opacities left lower lobe slightly more prominent, likely due to chronic focal airways disease. 2. Biapical parenchymal scarring and pleural thickening. 3. No new parenchymal lesions are identified to suggest metastatic disease. 4. No thoracic adenopathy. RADIA
== END 2019-07-02 14:01 | disposition home or self-care (01) ==
LOC: LAB 14:00
PROVIDERS: ATTEND Internal Medicine
DX: J47.9 Bronchiectasis, uncomplicated (principal); J98.4 Other disorders of lung; C18.0 Malignant neoplasm of cecum
CPT/HCPCS: 36415; 71260; 82565; Q9967

== ENCOUNTER 2019-11-22 07:02 | Day surgery (SDC) | payer OTHER ==
[~2019-11-22 07:02] MED LIST: SODIUM/POTASSIUM/MAG SULFATES 354 ML PREP KIT PO SCH
[2019-11-22] MEDS ORDERED: LACTATED RINGERS 1,000 ML IV ONE ×2 (07:30→09:14)
[2019-11-22] MEDS ORDERED: fentaNYL 250 MCG/5 ML VIAL IVP ONE (08:36)
[2019-11-22] MEDS ORDERED: MIDAZOLAM 2 MG/2 ML VIAL IVP ONE (08:36)
[2019-11-22] MEDS ORDERED: ONDANSETRON 4 MG/2 ML VIAL ONE ×2 (10:05→10:39)
[2019-11-22 11:23] VITALS: BP 130/77
[2019-11-22] MEDS ORDERED: METOCLOPRAMIDE 10 MG/2 ML VIAL ONE (12:06)
== END 2019-11-22 07:03 | disposition home or self-care (01) ==
LOC: SDS 07:02
PROVIDERS: ATTEND Internal Medicine Gastroenterology
DX: C18.2 Malignant neoplasm of ascending colon (principal); Z98.0 Intestinal bypass and anastomosis status
CPT/HCPCS: 45378; A9270; J2765; J3010; J7120

== ENCOUNTER 2020-01-27 14:59 | Outpatient (CLI) | payer OTHER ==
--- NOTE | 2020-01-28 05:38 | Mammography Report ---
BILATERAL DIGITAL SCREENING MAMMOGRAM 3D/2D: 01/27/2020 CLINICAL: Family history of breast cancer. Routine screening. Comparison is made to exams dated: 10/11/2016 mammogram and 05/27/2014 mammogram - [facility]. The tissue of both breasts is extremely dense, which lowers the sensitivity of mammography . There is an asymmetry in the right breast middle depth medial region seen on the craniocaudal view on ly. There is possible architectural distortion associated with the asymmetry. No other significant masses, calcifications, or other findings are seen in either breast. IMPRESSION: INCOMPLETE: NEEDS ADDITIONAL IMAGING EVALUATION The asymmetry in the right breast is indeterminate. Additional views with possible ultrasound are re commended. This exam was interpreted at Station ID: [id number]. NOTE: For mammograms, a report in lay terms will be sent to the patient. Approximately 15% of breast malignancies will not be visualized mammographically. In the management of a palpable breast mass, a negative mammogram must not discourage biopsy of a clinically suspicious lesion. Electronically Signed By: Nellie Graham M.D. lk/:01/27/2020 16:42:44 ACR BI-RADS Category 0: Incomplete 3340F PARENCHYMAL PATTERN: (VD) - The breast(s) demonstrate(s) extremely dense parenchyma, limiting the sen sitivity of mammography. BI-RADS CATEGORY: (0) - 0 Mammo and [place] [id number] Immediate follow-up LATERALITY: (B)
== END 2020-01-27 15:00 | disposition home or self-care (01) ==
LOC: DI.N 14:59
DX: Z12.31 Encounter for screening mammogram for malignant neoplasm of breast (principal); Z80.3 Family history of malignant neoplasm of breast
CPT/HCPCS: 77067

== ENCOUNTER 2020-02-16 16:51 | Outpatient (CLI) | payer MEDICARE, OTHER ==
[2020-02-16] MEDS ORDERED: IOVERSOL 320 50 ML VIAL ONE (17:10)
[2020-02-16] MEDS ORDERED: IOVERSOL 320 100 ML VIAL IVP ONE ×2 (17:10→20:08)
[2020-02-16] MEDS ORDERED: IOVERSOL 320 50 ML VIAL PO ONE (20:08)
--- NOTE | 2020-02-17 08:56 | CT Report ---
PROCEDURE: CHEST W INDICATIONS: MALIGNANT NEOPLASM OF CECUM CONTRAST: IV CONTRAST: Optiray 320 ml: 100 PO CONTRAST: Optiray 320 ml50 TECHNIQUE: After the administration of intravenous contrast, 5 mm thick sections acquired from the pulmonary api gaudencio to the posterior costophrenic angles. 7 mm thick coronal MIP reformats were acquired. For radia tion dose reduction, the following was used: automated exposure control, adjustment of mA and/or kV according to patient size. COMPARISON: CT chest 07/03/2019 FINDINGS: Image quality: Excellent. Lungs and pleura: A 3 x 2 mm nodule is seen in the anterior aspect of the right upper lobe (image 12 6 of series 3) which is grossly stable and nonspecific. A few scattered calcified granulomas are note d in both lungs. Bronchiectasis and tree-in-bud nodularity is again seen within the left lower lobe ( image 188 of series 3), which appear stable when compared to the CT from 07/02/2019. A few additional scattered areas of minimal bronchiectasis are noted in both lungs. Pleural parenchymal scarring is se en in the lung apices bilaterally. No pleural effusions or pneumothorax. Mediastinum: Heart size is normal. No pericardial effusion. No mediastinal or hilar adenopathy by size criteria. Thoracic aorta and central pulmonary arteries are normal in size. Esophagus is marion l in caliber. No hiatal hernia. Bones and chest wall: No suspicious bony lesions. No vertebral body compression fractures. Mild co emmett deformity of the right lateral sixth rib may be secondary to a healed fracture. No axillary or supraclavicular adenopathy by size criteria. Thyroid gland is unremarkable. Abdomen: Visualized upper abdominal solid organs appear normal. Upper abdominal bowel loops are nor mal in caliber. IMPRESSION: 1. No CT evidence of metastatic disease in chest. 2. Left lower lobe bronchiectasis and associated tree-in-bud nodularity does not appear significantl y changed when compared to the CT from 07/02/2019. Findings may be related to prior infection, prior a spiration, or a chronic indolent infection with an atypical agent such as with nontuberculous mycobac teria. Reviewed by: Homer Perdomo MD on 02/17/2020 8:55 AM PST Approved by: Homer Perdomo MD on 02/17/2020 8:55 AM PST Station ID: [id number]
--- NOTE | 2020-02-17 10:42 | CT Report ---
PROCEDURE: Abdomen/Pelvis W INDICATIONS: MALIGNANT NEOPLASM OF CECUM CONTRAST: IV CONTRAST: Optiray 320 ml: 100 PO CONTRAST: Optiray 320 ml50 TECHNIQUE: After the administration of intravenous and oral contrast, 5 mm thick sections acquired from the diap hragms to the symphysis. 5 mm thick coronal and sagittal reformats were acquired. For radiation dos e reduction, the following was used: automated exposure control, adjustment of mA and/or kV accordin g to patient size. COMPARISON: CT abdomen pelvis 09/12/2018, CT chest 02/16/2020. FINDINGS: Image quality: Excellent. ABDOMEN: Lung bases: There is mild bronchiectasis partially visualized within the left lower lobe. A few adjac ent clustered groundglass opacities are also partially visualized. Heart size is normal. Solid organs: Evaluation of the liver demonstrates no focal hepatic lesions. Gallbladder appears wit hin normal limits without calcified gallstones. Biliary system is non dilated. The spleen is normal in size. Pancreas enhances normally without peripancreatic fat stranding or fluid collections. No ad renal nodules. Kidneys demonstrate no hydronephrosis. Peritoneum and bowel: There are postsurgical changes consistent with partial right hemicolectomy. Aldrich el loops demonstrate normal wall thickness and caliber without a discrete mass identified. There is m oderate colonic stool distention distally suggestive of constipation. No free fluid or air. Nodes and vessels: No retroperitoneal or mesenteric adenopathy by size criteria. Aorta and inferior vena cava are normal in size. Miscellaneous: No ventral hernias. PELVIS: Genitourinary: Bladder wall thickness is normal. Miscellaneous: No inguinal hernias or adenopathy. Bones: No suspicious bony lesions. There is multilevel degenerative disc disease including moderate to severe degeneration at L5-S1. There is mild grade 1 anterolisthesis at L4-L5. Findings are similar to the prior study. No vertebral body compression fractures. IMPRESSION: 1. Postsurgical changes demonstrated consistent with prior partial right hemicolectomy. No definite e vidence of new recurrent or metastatic disease. 2. Moderate colonic stool distention distally suggestive of constipation or obstipation. No obstructi ng mass lesion identified. 3. Partially visualized small region of bronchiectasis with small adjacent clustered groundglass nodu les in the left lower lobe. The findings likely represent sequelae of an atypical infection. Reviewed by: Iam Arredondo MD on 02/17/2020 10:40 AM PST Approved by: Iam Arredondo MD on 02/17/2020 10:40 AM PST Station ID: [id number]
== END 2020-02-16 16:52 | disposition home or self-care (01) ==
LOC: DI 16:51
PROVIDERS: ATTEND Internal Medicine
DX: C18.0 Malignant neoplasm of cecum (principal); J47.9 Bronchiectasis, uncomplicated
CPT/HCPCS: 71260; 74177; Q9967

== ENCOUNTER 2020-08-08 08:00 | Outpatient (CLI) | payer OTHER, MEDICARE ==
[2020-08-08 13:05] LABS: CHOL/HDL RATIO 3.1 (<4.4); CHOLESTEROL 235 mg/dL; HDL CHOLESTEROL 76 mg/dL; LDL CHOLESTEROL,CALCULATED 133 mg/dL; LDL/HDL RATIO 1.8 (<4.4); TRIGLYCERIDES 132 mg/dL; VLDL CHOLESTEROL 26 mg/dL
[2020-08-08 13:16] LABS: THYROID STIMULATING HORMONE 3.06 uIU/mL (0.34-5.60)
== END 2020-08-08 23:59 | disposition home or self-care (01) ==
LOC: LAB.WCP 08:00
PROVIDERS: ATTEND Internal Medicine
DX: K59.09 Other constipation (principal); Z13.220 Encounter for screening for lipoid disorders
CPT/HCPCS: 36415; 80061; 83721; 84443

== ENCOUNTER 2020-11-29 14:59 | Outpatient (CLI) | payer MEDICARE, OTHER ==
--- NOTE | 2020-11-29 15:42 | DEXA Report ---
PROCEDURE: Dexa Spine and/or Hip INDICATIONS: POSTMENOPAUSAL TECHNIQUE: Dual energy x-ray absorptiometry (DXA) was performed on a [employer] System. Regions measur ed are the AP Spine, femoral neck, and if needed forearm. COMPARISON: None. FINDINGS: Lumbar Spine: Bone Mineral Density 1.001 g/cm/cm,T score -1.4, osteopenia Left Femoral Neck: Bone Mineral Density 0.661 g/cm/cm, T score -2.7, osteoporosis (T score greater or equal to -1.0: NORMAL) (T score from -1.1 to -2.4: OSTEOPENIA) (T score less than or equal to -2.5 to: OSTEOPOROSIS) Impression: Osteopenic and osteoporotic bone mineral density. Patients with diagnosis of osteoporosis or osteopenia should have regular bone mineral density assess ment. For those eligible for Medicare, routine testing is allowed once every 2 years. Testing frequ ency can be increased for patients who have rapidly progressing disease or for those who are receivin g medical therapy to restore bone mass. Reviewed by: Sulaiman Calderon MD on 11/29/2020 3:40 PM PDT Approved by: Sulaiman Calderon MD on 11/29/2020 3:40 PM PDT Station ID: [id number]
== END 2020-11-29 15:00 | disposition home or self-care (01) ==
LOC: DI 14:59
PROVIDERS: ATTEND Internal Medicine
DX: Z78.0 Asymptomatic menopausal state (principal); M81.0 Age-related osteoporosis without current pathological fracture

== ENCOUNTER 2020-12-11 14:41 | Outpatient (CLI) | payer MEDICARE ==
--- NOTE | 2020-12-14 02:21 | XRAY Report ---
PROCEDURE: Hips 2V BILAT INDICATIONS: BILATERAL HIP PX TECHNIQUE: 2 views of the hip were acquired. Images became available for review on 12/13/2020 COMPARISON: None minimal to mild bilateral degenerative hip joint space narrowing. No erosions. FINDINGS: Bones: No fractures or dislocations. No suspicious bony lesions. The visualized pelvic ring appear s intact. Soft tissues: No suspicious soft tissue calcifications or masses. IMPRESSION: Early changes of bilateral hip osteoarthritis. Reviewed by: Angeli Sanchez MD on 12/14/2020 1:39 AM PDT Approved by: Angeli Sanchez MD on 12/14/2020 1:39 AM PDT Station ID: [id number]
== END 2020-12-11 14:42 | disposition home or self-care (01) ==
LOC: DI.N 14:41
PROVIDERS: ATTEND Internal Medicine
DX: M25.551 Pain in right hip (principal); M25.552 Pain in left hip; M16.0 Bilateral primary osteoarthritis of hip

== ENCOUNTER 2021-04-09 13:21 | Outpatient (CLI) | payer OTHER, MEDICARE ==
--- NOTE | 2021-04-10 11:46 | Mammography Report ---
BILATERAL DIGITAL SCREENING MAMMOGRAM 3D/2D: 04/09/2021 CLINICAL: Routine screening. Comparison is made to exams dated: 02/15/2020 mammogram - [facility], 01/27/2020 mammogram - [facility], 01/27/2020 mammogram - [facility], 10/11/2016 mamm ogram - [facility], 10/11/2016 mammogram - [facility], and 015 mammogram - [facility]. The tissue of both breasts is extremely dense, which l owers the sensitivity of mammography. No significant masses, calcifications, or other findings are seen in either breast. There has been no significant interval change. IMPRESSION: NEGATIVE There is no mammographic evidence of malignancy. A 1 year screening mammogram is recommended. This exam was interpreted at Station ID: [id number]. NOTE: For mammograms, a report in lay terms will be sent to the patient. Approximately 15% of breast malignancies will not be visualized mammographically. In the management of a palpable breast mass, a negative mammogram must not discourage biopsy of a clinically suspicious lesion. Electronically Signed By: Ellie harding/selene:04/09/2021 14:21:41 ACR BI-RADS Category 1: Negative 3341F PARENCHYMAL PATTERN: (VD) - The breast(s) demonstrate(s) extremely dense parenchyma, limiting the sen sitivity of mammography. BI-RADS CATEGORY: (1) - 1 RECOMMENDATION: (ANNUAL) - Recommend routine annual screening mammography. [id number] 1 year screening LATERALITY: (B)
== END 2021-04-09 13:22 | disposition home or self-care (01) ==
LOC: DI.N 13:21
PROVIDERS: ATTEND Internal Medicine
DX: Z12.31 Encounter for screening mammogram for malignant neoplasm of breast (principal)

== ENCOUNTER 2021-05-22 14:44 | Outpatient (CLI) | payer OTHER, MEDICARE ==
[2021-05-22 18:06] LABS: BASOPHILS # (AUTO) 0.1 10^3/uL (0.0-0.1); BASOPHILS % (AUTO) 0.6 %; EOSINOPHILS # (AUTO) 0.1 10^3/uL (0.0-0.7); EOSINOPHILS % (AUTO) 1.5 %; HCT - HEMATOCRIT 39.6 % (37.0-47.0); HGB - HEMOGLOBIN 13.1 g/dL (12.0-16.0); LYMPHOCYTES # (AUTO) 2.2 10^3/uL (1.5-3.5); LYMPHOCYTES % (AUTO) 27.1 %; MEAN CORPUSCULAR HEMOGLOBIN 31.1 pg (27.0-31.0); MEAN CORPUSCULAR HGB CONC 33.1 g/dL (32.0-36.0); MEAN CORPUSCULAR VOLUME 94.1 fL (81.0-99.0); MEAN PLATELET VOLUME 10.5 fL (7.9-10.8); MONOCYTES # (AUTO) 0.5 10^3/uL (0.0-1.0); MONOCYTES % (AUTO) 6.7 %; NEUTROPHILS # (AUTO) 5.1 10^3/uL (1.5-6.6); NEUTROPHILS % (AUTO) 63.7 %; PLT - PLATELET COUNT 358 10^3/uL (130-450); RED BLOOD COUNT 4.21 10^6/uL (4.20-5.40)
[2021-05-22 18:21] LABS: ALBUMIN 4.2 g/dL (3.2-5.5); ALBUMIN/GLOBULIN RATIO 1.3 (1.0-2.2); BILIRUBIN,TOTAL 0.7 mg/dL (0.2-1.0); CALCIUM 9.3 mg/dL (8.5-10.3); CREATININE 0.8 mg/dL (0.4-1.0); TOTAL PROTEIN 7.5 g/dL (6.7-8.2)
== END 2021-05-22 23:59 | disposition home or self-care (01) ==
LOC: LAB.N 14:44
PROVIDERS: ATTEND Nurse Practitioner
DX: R04.0 Epistaxis (principal)
CPT/HCPCS: 36415; 80053; 85025

== ENCOUNTER 2021-12-18 08:57 | Day surgery (SDC) | payer OTHER, MEDICARE ==
[2021-12-18] MEDS ORDERED: LACTATED RINGERS 1,000 ML IV ONE ×2 (09:13→11:42)
--- NOTE | 2021-12-18 11:02 | ANESTHESIA ---
Pre-Anesthesia VS, & Labs - Diagnosis hx of colon CA - Procedure colonoscopy Vital Signs: Temp Pulse Resp BP Pulse Ox O2 Flow Rate 36.5 C 55 L 21 155/79 H 100 12/18/21 09:23 12/18/21 09:23 12/18/21 09:23 12/18/21 09:23 12/18/21 09:23 Height: 5 ft 3 in Weight (kg): 45.9 kg Body Mass Index: 17.9 BMI Classification: Underweight - NPO >8 hours - Is Patient ?: No Home Medications and Allergies Calcium Carb/Mag Ox/Zinc Sulf [Bxe-Ibr-Tnco 334-134-5 mg Tab] 1 each PO DAILY 09/05/21 Allergies/Adverse Reactions: Allergies Allergy/AdvReac Type Severity Reaction Status Date / Time Sulfa (Sulfonamide AdvReac Nausea, Verified 12/17/21 10:28 Antibiotics) diarrhea Anes History & Medical History - Anesthetic History Anesthesia Complications: reports: No previous complications Family history of Anesthesia Complications: Denies Family history of Malignant Hyperthermia: Denies - Medical History Cardiovascular: reports: None Pulmonary: reports: None Gastrointestinal: reports: None Urinary: reports: None Neuro: reports: None Musculoskeletal: reports: None Endocrine/Autoimmune: reports: None, Other Blood Disorders: reports: None Skin: reports: None Smoking Status: Never smoker - Surgical History General: reports: Bowel surgery, Colonoscopy Exam General: Alert, Oriented x3, Cooperative Dental: WNL Mouth Openin Fingerbreadth Neck Mobility: Normal Mallampati classification: I Respiratory: Lungs clear Cardiovascular: Regular rate Plan Anesthesia Type: Total IV Consent for Procedure(s) Verified and Reviewed: Yes Code Status: Attempt Resuscitation ASA classification: 2-Mild systemic disease Is this case an emergency?: No
[2021-12-18] MEDS ORDERED: PROPOFOL 500 MG/50 ML 500 MG/50 ML VIAL ONE (11:04)
[2021-12-18] MEDS ORDERED: GLYCOPYRROLATE 1 MG/5 ML VIAL ONE (11:24)
[2021-12-18 12:15] VITALS: BP 104/57
--- NOTE | 2021-12-18 15:06 | ANESTHESIA POST OP EVALUATION ---
Anesthesia Post Eval - Post Anesthesia Eval Vitals: Last Vital Signs Temp 36.5 C 12/18/21 11:42 Pulse 56 L 12/18/21 12:14 Resp 18 12/18/21 12:14 BP 104/57 L 12/18/21 12:14 Pulse Ox 100 12/18/21 12:14 O2 Flow Rate CV Function Including HR & BP: Stable Pain Control: Satisfactory Nausea & Vomiting: Negative Mental Status: Baseline Respiratory Status: Airway Patent Hydration Status: Satisfactory Anesthesia Complications: None
== END 2021-12-18 08:58 | disposition home or self-care (01) ==
LOC: SDS 08:57
PROVIDERS: ATTEND Surgery
DX: Z08 Encounter for follow-up examination after completed treatment for malignant neoplasm (principal); J47.9 Bronchiectasis, uncomplicated; R63.6 Underweight; Z68.1 Body mass index [BMI] 19.9 or less, adult; Z90.49 Acquired absence of other specified parts of digestive tract; Z85.038 Personal history of other malignant neoplasm of large intestine; Z98.0 Intestinal bypass and anastomosis status
CPT/HCPCS: 45378; J7120

== ENCOUNTER 2022-04-18 14:28 | Outpatient (CLI) | payer OTHER, MEDICARE ==
--- NOTE | 2022-04-19 12:05 | Mammography Report ---
BILATERAL DIGITAL SCREENING MAMMOGRAM 3D/2D: 04/18/2022 CLINICAL: Routine screening. Comparison is made to exams dated: 04/09/2021 mammogram - [facility], 02/15/2020 mamm ogram - [facility], 01/27/2020 mammogram - [facility], 01/27/2020 mammo gram - [facility], 10/11/2016 mammogram - [facility], and 7 mammogram - [facility]. Both breasts are extremely dense, which lowers the sensitivity of mammography (category d />75% gland ular tissue). No significant masses, calcifications, or other findings are seen in either breast. There has been no significant interval change. IMPRESSION: NEGATIVE There is no mammographic evidence of malignancy. A 1 year screening mammogram is recommended. Based on the Tyrer Cuzick model (a risk assessment model) the patients lifetime risk is 12.0% and he r 10 year risk is 6.4%. According to the ACR, ACS, and NCCN guidelines, an annual breast MRI exam zully ng with mammogram is recommended if the patients lifetime risk is 20% or greater. This exam was interpreted at Station ID: [id number]. NOTE: For mammograms, a report in lay terms will be sent to the patient. Approximately 15% of breast malignancies will not be visualized mammographically. In the management of a palpable breast mass, a negative mammogram must not discourage biopsy of a clinically suspicious lesion. Electronically Signed By: Jaylon jensen/selene:04/18/2022 17:27:04 letter sent: No_Letter ACR BI-RADS Category 1: Negative 3341F PARENCHYMAL PATTERN: (VD) - The breast(s) demonstrate(s) extremely dense parenchyma, limiting the sen sitivity of mammography. BI-RADS CATEGORY: (1) - 1 Mammogram [id number] 1 year screening LATERALITY: (B)
== END 2022-04-18 14:29 | disposition home or self-care (01) ==
LOC: DI.N 14:28
DX: Z12.31 Encounter for screening mammogram for malignant neoplasm of breast (principal)

== ENCOUNTER 2022-07-02 07:31 | Outpatient (CLI) | payer OTHER, MEDICARE ==
[2022-07-02 12:11] LABS: ALBUMIN 4.2 g/dL (3.2-5.5); ALBUMIN/GLOBULIN RATIO 1.4 (1.0-2.2); ALKALINE PHOSPHATASE 33 IU/L (42-121); ALT ALANINE AMINOTRANSFERASE 19 IU/L (10-60); AST ASPARTATE AMINOTRANSFERASE 22 IU/L (10-42); BILIRUBIN,TOTAL 1.1 mg/dL (0.2-1.0); BUN - BLOOD UREA NITROGEN 24 mg/dL (6-20); CALCIUM 9.4 mg/dL (8.5-10.3); CARBON DIOXIDE - CO2 29 mmol/L (21-32); CHLORIDE 104 mmol/L (101-111); CHOL/HDL RATIO 3.1 (<4.4); CHOLESTEROL 270 mg/dL; CREATININE 0.9 mg/dL (0.4-1.0); GFR - MDRD 62 (>89); GLUCOSE 93 mg/dL (70-100); HDL CHOLESTEROL 87 mg/dL; LDL CHOLESTEROL,CALCULATED 165 mg/dL; LDL/HDL RATIO 1.9 (<4.4); POTASSIUM 3.9 mmol/L (3.5-5.0); SODIUM 141 mmol/L (135-145); TOTAL PROTEIN 7.3 g/dL (6.7-8.2); TRIGLYCERIDES 89 mg/dL; VLDL CHOLESTEROL 18 mg/dL
== END 2022-07-02 07:32 | disposition home or self-care (01) ==
LOC: LAB.N 07:31
PROVIDERS: ATTEND Internal Medicine
DX: M81.0 Age-related osteoporosis without current pathological fracture (principal); Z13.220 Encounter for screening for lipoid disorders
CPT/HCPCS: 36415; 80053; 80061; 83721

== ENCOUNTER 2023-08-20 13:07 | Outpatient (CLI) | payer OTHER, MEDICARE ==
--- NOTE | 2023-08-21 10:42 | Mammography Report ---
BILATERAL DIGITAL SCREENING MAMMOGRAM 3D/2D: 08/20/2023 CLINICAL: Routine screening. Comparison is made to exams dated: 04/18/2022 mammogram, 04/09/2021 mammogram - [facility], 02/15/2020 mammogram - [facility], 01/27/2020 mammogram - [facility], 01/27/2020 mammogram - [facility], and 10/11/2016 mammogram - [facility]. Both breasts are extremely dense, which lowers the sensitivity of mammography (category d />75% gland ular tissue). No significant masses, calcifications, or other findings are seen in either breast. There has been no significant interval change. IMPRESSION: NEGATIVE There is no mammographic evidence of malignancy. A 1 year screening mammogram is recommended. Based on the Tyrer Cuzick model (a risk assessment model) the patient's lifetime risk is 11.4% and he r 10 year risk is 6.4%. According to the ACR, ACS, and NCCN guidelines, an annual breast MRI exam zully ng with mammogram is recommended if the patient's lifetime risk is 20% or greater. This exam was interpreted at Station ID: [id number]. NOTE: For mammograms, a report in lay terms will be sent to the patient. Approximately 15% of breast malignancies will not be visualized mammographically. In the management of a palpable breast mass, a negative mammogram must not discourage biopsy of a clinically suspicious lesion. Electronically Signed By: Ellie harding/selene:08/20/2023 15:24:57 letter sent: No_Letter ACR BI-RADS Category 1: Negative 3341F PARENCHYMAL PATTERN: (VD) - The breast(s) demonstrate(s) extremely dense parenchyma, limiting the sen sitivity of mammography. BI-RADS CATEGORY: (1) - 1 RECOMMENDATION: (ANNUAL) - Recommend routine annual screening mammography. [id number] 1 year screening LATERALITY: (B)
== END 2023-08-20 13:08 | disposition home or self-care (01) ==
LOC: DI 13:07
PROVIDERS: ATTEND Internal Medicine
DX: Z12.31 Encounter for screening mammogram for malignant neoplasm of breast (principal)

== ENCOUNTER 2023-08-20 13:09 | Outpatient (CLI) | payer OTHER, MEDICARE ==
--- NOTE | 2023-08-22 12:03 | DEXA Report ---
PROCEDURE: Dexa Spine and/or Hip INDICATIONS: OSTEOPOROSIS TECHNIQUE: Dual energy x-ray absorptiometry (DXA) was performed on a [employer] System. Regions measur ed are the AP Spine, femoral neck, and if needed forearm. COMPARISON: DEXA on November 29, 2020 FINDINGS: Lumbar Spine (L1-L3): Bone Mineral Density: 1.141 g/cm/cm,T score: -0.3. Since the most recent prior study, there has been a statistically significant increase in bone mineral density by 5.1 percent. Left Femoral Neck: Bone Mineral Density: 0.664 g/cm/cm, T score: -2.7. Left Hip: Bone Mineral Density: 0.727 g/cm/cm,T score: -2.2. There has been no statistically significant change in bone mineral density since the prior study. (T score greater or equal to -1.0: NORMAL) (T score from -1.1 to -2.4: OSTEOPENIA) (T score less than or equal to -2.5 to: OSTEOPOROSIS) Impression: 1.By WHO criteria, this patient has osteoporosis. 2.Since the most recent prior study, there has been a statistically significant increase in bone mine ral density of the lumbar spine and no statistically significant change in bone mineral density of th e left hip. Patients with diagnosis of osteoporosis or osteopenia should have regular bone mineral density assess ment. For those eligible for Medicare, routine testing is allowed once every 2 years. Testing frequ ency can be increased for patients who have rapidly progressing disease or for those who are receivin g medical therapy to restore bone mass. Reviewed by: Darwin Kamara MD on 08/22/2023 12:02 PM PDT Approved by: Darwin Kamara MD on 08/22/2023 12:02 PM PDT Station ID: [id number]
== END 2023-08-20 13:10 | disposition home or self-care (01) ==
LOC: DI 13:09
PROVIDERS: ATTEND Internal Medicine
DX: M81.0 Age-related osteoporosis without current pathological fracture (principal)

== ENCOUNTER 2023-08-28 07:06 | Outpatient (CLI) | payer OTHER, MEDICARE ==
[2023-08-28 12:24] LABS: ALBUMIN 4.5 g/dL (3.2-5.5); ALBUMIN/GLOBULIN RATIO 1.5 (1.0-2.2); ALKALINE PHOSPHATASE 29 IU/L (42-121); ALT ALANINE AMINOTRANSFERASE 20 IU/L (10-60); AST ASPARTATE AMINOTRANSFERASE 22 IU/L (10-42); BILIRUBIN,TOTAL 0.7 mg/dL (0.2-1.0); BUN - BLOOD UREA NITROGEN 21 mg/dL (6-20); CALCIUM 10.1 mg/dL (8.5-10.3); CARBON DIOXIDE - CO2 30 mmol/L (21-32); CHLORIDE 102 mmol/L (101-111); CHOL/HDL RATIO 3.4 (<4.4); CHOLESTEROL 292 mg/dL; CREATININE 0.9 mg/dL (0.6-1.3); GFR - MDRD 62 (>89); GLUCOSE 93 mg/dL (74-104); HDL CHOLESTEROL 86 mg/dL; LDL CHOLESTEROL,CALCULATED 177 mg/dL; LDL/HDL RATIO 2.1 (<4.4); POTASSIUM 4.1 mmol/L (3.5-4.5); SODIUM 139 mmol/L (135-145); TOTAL PROTEIN 7.6 g/dL (6.4-8.9); TRIGLYCERIDES 143 mg/dL; VLDL CHOLESTEROL 29 mg/dL
[2023-08-28 12:38] LABS: THYROID STIMULATING HORMONE 3.39 uIU/mL (0.34-5.60)
== END 2023-08-28 07:07 | disposition home or self-care (01) ==
LOC: LAB.N 07:06
PROVIDERS: ATTEND Internal Medicine
DX: C18.2 Malignant neoplasm of ascending colon (principal); Z13.220 Encounter for screening for lipoid disorders; K59.09 Other constipation
CPT/HCPCS: 36415; 80053; 80061; 83721; 84443